=== PATIENT | female | born 1990 ===

== ENCOUNTER 2016-11-18 11:55 | Emergency (ER) | payer SELFPAY ==
[~2016-11-18] VITALS: Ht 165.1 cm; Wt 59.0 kg
[2016-11-18 11:55] VITALS: BP 114/69; PULSE 71; RESP 20; TEMP 98.3; O2SAT 100
--- NOTE | 2016-11-18 12:17 | PD ---
HPI Chief Complaint: seizure Time Seen by Provider: 12:12 Travel History International Travel<30 days: No Contact w/Intl Traveler<30days: No History of Present Illness HPI Patient comes in for evaluation of an unwitnessed seizure that occurred shortly prior to arrival. Patient states she was at her hotel room she started getting a migraine on the right side of her head. Patient states she went to get up to go the bathroom this with the seizure occurred. Patient reports urinary incontinence and continued right-sided headache. Patient states that her friend who was on the way over cleaned her up prior to ambulance arriving. Patient states that she had a seizure about 1 month ago in [place] where she lives and was started on unknown seizure medication but reports she is not taking as it made her stomach upset. Patient states she was suppose to follow- up with a neurologist that she has not done this yet. Patient reports she has a history of migraines and this feels similar to her previous migraines. Patient is uncertain of what all studies were done previously from her seizure. Denies any chest pain, shortness of breath, nausea, vomiting, abdominal pain, numbness or tingling anywhere, , or change in vision. PFSH Past Medical History Migraines: Yes Seizures: Yes Social History Alcohol Use: No Tobacco Use: No Substance Use: No Allergies-Medications (Allergen,Severity, Reaction): Coded Allergies: Penicillin (Verified Allergy, Unknown, 11/18/16) Reported Meds & Prescriptions Reported Meds & Active Scripts Active No Active Prescriptions or Reported Medications Review of Systems Except as stated in HPI: all other systems reviewed are Neg Physical Exam Narrative GENERAL: Well-developed, well nourished, in no acute distress, and non-ill appearing. SKIN: Focused skin assessment warm and dry. HEAD: Atraumatic. Normocephalic. EYES: Pupils equal and round. EOMI. No scleral icterus. No injection or drainage. ENT: No nasal bleeding or discharge. Mucous membranes pink and moist. NECK: Trachea midline. Supple. No nuclear rigidity. CARDIOVASCULAR: Regular rate and rhythm. No murmur appreciated. RESPIRATORY: No accessory muscle use. No respiratory distress. Clear to auscultation. Breath sounds equal bilaterally. MUSCULOSKELETAL: No obvious deformities. No clubbing. No cyanosis. No edema. Full range of motion. NEUROLOGICAL: Awake and alert. No obvious cranial nerve deficits. Motor grossly within normal limits. Normal speech. PSYCHIATRIC: Appropriate mood and affect; insight and judgment normal. Data Data Last Documented VS Vital Signs Date Time Temp Pulse Resp B/P Pulse Ox O2 Delivery O2 Flow Rate FiO2 11/18/16 11:55 100 Room Air 11/18/16 11:55 98.3 71 20 114/69 Orders Complete Blood Count With Diff (11/18/16 12:06) Basic Metabolic Panel (Bmp) (11/18/16 12:06) Blood Glucose (11/18/16 12:06) Ecg Monitoring (11/18/16 12:06) Iv Access Insert/Monitor (11/18/16 12:06) Oximetry (11/18/16 12:06) Urinalysis - C+S If Indicated (11/18/16 12:06) Ed Urine Pregnancytest Poc (11/18/16 12:06) Lactic Acid (11/18/16 12:06) Prothrombin Time / Inr (Pt) (11/18/16 12:06) Act Partial Throm Time (Ptt) (11/18/16 12:06) Electrocardiogram (11/18/16 ) Metoclopramide Inj (Reglan Inj) (11/18/16 12:30) Sodium Chlor 0.9% 1000 Ml Inj (Ns 1000 M (11/18/16 12:30) Labs Laboratory Tests Test 11/18/16 12:15 White Blood Count 6.4 TH/MM3 Red Blood Count 4.13 MIL/MM3 Hemoglobin 12.7 GM/DL Hematocrit 36.8 % Mean Corpuscular Volume 89.1 FL Mean Corpuscular Hemoglobin 30.7 PG Mean Corpuscular Hemoglobin 34.4 % Concent Red Cell Distribution Width 13.0 % Platelet Count 307 TH/MM3 Mean Platelet Volume 8.8 FL Neutrophils (%) (Auto) 52.8 % Lymphocytes (%) (Auto) 30.6 % Monocytes (%) (Auto) 9.7 % Eosinophils (%) (Auto) 5.8 % Basophils (%) (Auto) 1.1 % Neutrophils # (Auto) 3.4 TH/MM3 Lymphocytes # (Auto) 2.0 TH/MM3 Monocytes # (Auto) 0.6 TH/MM3 Eosinophils # (Auto) 0.4 TH/MM3 Basophils # (Auto) 0.1 TH/MM3 CBC Comment DIFF FINAL Differential Comment Sodium Level 140 MEQ/L Potassium Level 3.3 MEQ/L Chloride Level 108 MEQ/L Carbon Dioxide Level 25.5 MEQ/L Anion Gap 7 MEQ/L Blood Urea Nitrogen 18 MG/DL Creatinine 0.87 MG/DL Estimat Glomerular Filtration 78 ML/MIN Rate Random Glucose 93 MG/DL Calcium Level 8.6 MG/DL MDM Medical Decision Making Medical Screen Exam Complete: Yes Emergency Medical Condition: Yes Differential Diagnosis Seizure, electrolyte abnormality, UTI, migraine, intracranial hemorrhage, dehydration, other Narrative Course 1240 patient reports headache is gone is wanting to leave AGAINST MEDICAL ADVICE. The risks of leaving against medical advice without further evaluation treatment were discussed with the patient. These risks include cardiac dysfunction, cardiac dysrhythmia, possible heart attack, possible stroke or . The patient indicated understanding of these risks and appeared to have the capacity to make this decision is alert and oriented 3 and does not appear under the influence of drugs or alcohol. Patient in no obvious distress upon re-evaluation. Reinforced sheer importance of close follow up with patient's primary physician or primary care clinic. Instructed patient to return to ED immediately, if symptoms return/worsen. Pt showed understanding of above instructions. Pt ambulated without difficulty out of ED AGAINST MEDICAL ADVICE. Diagnosis Primary Impression: Left against medical advice Scripts No Active Prescriptions or Reported Meds Disposition: 07 AGAINST MEDICAL ADVICE Condition: Stable Travis Gagnon Nov 18, 2016 12:17
[2016-11-18] MEDS ORDERED: METOCLOPRAMIDE HCL 10 MG/2 ML VIAL IV PUSH ONE (12:30)
[2016-11-18] MEDS ORDERED: SODIUM CHLOR 0.9% 1000 ML INJ 1,000 ML IV ONE (12:30)
[2016-11-18 12:35] LABS: AUTOMATED NEUTROPHIL # 3.4 TH/MM3 (1.8-7.7); BASOPHIL # 0.1 TH/MM3 (0-0.2); BASOPHIL % 1.1 % (0.0-2.0); EOSINOPHIL # 0.4 TH/MM3 (0-0.4); EOSINOPHIL % 5.8 % (0.0-4.0); HEMATOCRIT 36.8 % (35.0-46.0); HEMO FLAGS DIFF FINAL; LYMPH % 30.6 % (9.0-44.0); MEAN CELL VOLUME 89.1 FL (80.0-100.0); MEAN CORPUSCULAR HEMOGLOBIN 30.7 PG (27.0-34.0); MEAN CORPUSCULAR HGB CONC 34.4 % (32.0-36.0); MONO % 9.7 % (0.0-8.0); NEUT % 52.8 % (16.0-70.0); PLATELET COUNT 307 TH/MM3 (150-450); RED BLOOD COUNT 4.13 MIL/MM3 (4.00-5.30); WHITE BLOOD COUNT 6.4 TH/MM3 (4.0-11.0)
[2016-11-18 12:45] LABS: BICARBONATE 25.5 MEQ/L (21.0-32.0); POTASSIUM 3.3 MEQ/L (3.5-5.1)
[2016-11-18 12:49] LABS: APTT (PATIENT) 25.9 SEC (24.3-30.1); INTERNATIONAL NORMALIZED RATIO 1.1 RATIO; PROTHROMBIN TIME - PATIENT 12.7 SEC (9.8-11.6)
== END 2016-11-18 13:00 | disposition left against medical advice (07) ==
LOC: NEPC 11:55
DX: R51 Headache (principal)
CPT/HCPCS: 80048; 83605; 85025; 85610; 85730; 96374; 99284; J2765; J7030